=== PATIENT | female | born 1975 | race Caucasian/White ===

== ENCOUNTER 2019-03-09 09:30 | Day surgery (SDC) | payer MEDICARE, OTHER ==
[2019-03-05 16:15] VITALS: BMI 34.5
[~2019-03-09 09:30] MED LIST: LACTATED RINGERS 1,000 ML IV SCH; LIDOCAINE 1% 20 ML VIAL (10MG/ML) FOR IV START INTRADERMA PRN
[2019-03-09 11:37] VITALS: RESP 18; TEMP 98.1
[2019-03-09] MEDS ORDERED: PROPOFOL 10 MG/ML 20 ML VIAL IV ONE (12:24)
--- NOTE | 2019-03-09 12:58 | P.PCN ---
Date of Procedure: 03/09/19 Procedure(s) Performed: Procedure: Esophagogastroduodenoscopy and biopsy. Preoperative diagnosis: Dysphagia and history of stricture. Diagnosis: 1. Small sliding hiatal hernia with no obvious esophagitis or complicated reflux disease. 2. No Hastings's esophagus strictures. 3. Mild gastritis and minimal duodenitis. 4. Biopsies obtained from the antrum and esophagus. Preparation and sedation: Was provided by anesthesia. Brief clinical history: The patient is a 43-year-old female with history of Down syndrome and mental disadvantage who is scheduled for this evaluation because of dysphagia. The patient had history of altered bowel function with predominant diarrhea that has improved upon elimination of dairy. Her dysphagia is of recent onset, although, there is history of esophageal stricture that was dilated using the 12-15 mm balloon in 2010 and 2011. Procedure: With the patient on her left lateral decubitus position and after informed consent and adequate sedation, I passed the Olympus-GIF H190 video upper endoscope through the cricopharyngeus down the esophagus. GE junction was around 34 cm from the incisors and there was a very small sliding hiatal hernia but no obvious esophagitis or complicated reflux disease. Specifically, there were no Hastings's esophagus or strictures. The endoscope was then passed into the stomach which was insufflated with air and inspected in detail including the retroflex view in the cardia. There was some mottling and erythema in the antrum but no ulcers or erosions. Pyloric channel did not show any ulcers. Duodenal bulb, post bulbar area and descending duodenum showed mild erythema. I obtained biopsies from the antrum and esophagus but there was no indications for dilation. The patient tolerated the procedure well. Plan: I discussed with the caregiver. If she continues to have difficulty swallowing and especially if there is nutritional compromise, we may have to do additional evaluation for possible motility problems.
[2019-03-09 13:12] VITALS: BP 95/59; PULSE 51
== END 2019-03-09 13:30 | disposition home or self-care (01) ==
LOC: ORWHC2ENDO 09:30 → EEVIPCON 11:10 → ORWHC2ENDO 13:30
DX: K29.50 Unspecified chronic gastritis without bleeding (principal); K44.9 Diaphragmatic hernia without obstruction or gangrene; R13.10 Dysphagia, unspecified; Q90.9 Down syndrome, unspecified; R19.4 Change in bowel habit; E07.9 Disorder of thyroid, unspecified; F95.2 Tourette's disorder; K21.9 Gastro-esophageal reflux disease without esophagitis; Z79.890 Hormone replacement therapy; Z79.899 Other long term (current) drug therapy
CPT/HCPCS: 43239; 88305; 88342; 84703; J2704

== ENCOUNTER 2021-03-15 15:18 | Emergency (ER) | payer MEDICARE, OTHER ==
[2021-03-15 15:36] VITALS: RESP 20
--- NOTE | 2021-03-15 16:00 | ED ---
General Adult HPI - General Chief complaint: Recheck/Abnormal Lab/Rx Stated complaint: Aspirations Time Seen by Provider: 03/15/21 15:21 Source: EMS Mode of arrival: EMS Limitations: altered mental status - History of Present Illness Initial comments: Maria L is a 45-year-old female with history of Down syndrome and profound cognitive delay. She is brought to the ER today by ambulance after having a choking episode while eating rice at her snf. Nonverbal and offers no complaints. - Related Data Home Medications Medication Instructions Recorded Confirmed Cimetidine [Tagamet] 400 mg PO HS 12/26/16 03/09/19 Levothyroxine Sodium [Levoxyl] 88 mcg PO DAILY 12/26/16 03/09/19 Loratadine [Claritin] 10 mg PO DAILY 12/26/16 03/09/19 Oxybutynin Chloride 10 mg PO HS 12/26/16 03/09/19 Oxybutynin Chloride [Ditropan] 5 mg PO QAM 12/26/16 03/09/19 risperiDONE [RisperDAL] 0.75 mg PO HS 12/26/16 03/09/19 Melatonin 3 mg PO HS 03/05/19 03/09/19 Allergies Allergy/AdvReac Type Severity Reaction Status Date / Time No Known Allergies Allergy Verified 03/15/21 15:25 Review of Systems ROS Statement: Those systems with pertinent positive or pertinent negative responses have been documented in the HPI. ROS Other: All systems not noted in ROS Statement are negative. Past Medical History Past Medical History: Thyroid Disorder Additional Past Medical History / Comment(s): Down syndrome, tourettes disorder, severe mental retardation, dysphagia for last month, incontinence History of Any Multi-Drug Resistant Organisms: None Reported Past Surgical History: No Surgical Hx Reported Additional Past Surgical History / Comment(s): Egd 2010 & 2012 per care provider Past Anesthesia/Blood Transfusion Reactions: No Reported Reaction Additional Past Anesthesia/Blood Transfusion Reaction / Comment(s): no family hx. available Past Psychological History: No Psychological Hx Reported Smoking Status: Never smoker Past Alcohol Use History: None Reported Past Drug Use History: None Reported - Past Family History Mother Family Medical History: Unable to Obtain General Exam - General Exam Comments Initial Comments: Physical Exam GENERAL: Syndromic appearance No distress HENT: Normocephalic, Atraumatic. EYES: Disconjugate gaze PULMONARY: Unlabored respirations. No audible rales rhonchi or wheezing was noted. CARDIOVASCULAR: There is a regular rate and rhythm without any murmurs gallops or rubs. ABDOMEN: Soft and nontender with normal bowel sounds. SKIN: Skin is clear with no lesions or rashes and otherwise unremarkable. : Deferred NEUROLOGIC: Patient is alert and oriented x3. Moving all extremities spontaneously MUSCULOSKELETAL: Normal extremities with adequate strength and full range of motion. No lower extremity swelling or edema. No calf tenderness. PSYCHIATRIC: Normal psychiatric evaluation. Limitations: altered mental status Course Vital Signs 03/15/21 03/15/21 15:25 16:55 Temperature 99.1 F 98.4 F Pulse Rate 67 72 Respiratory 20 20 Rate Blood Pressure 102/87 100/80 O2 Sat by Pulse 98 97 Oximetry Medical Decision Making - Medical Decision Making The patient was seen and evaluated history obtained from EMS Patient hemodynamically stable no hypoxia no coughing no choking x-ray was negative patient to be discharged back to her snf, group therapy counselor bedside comfortable taking patient home via private vehicle Disposition Clinical Impression: Cough Disposition: HOME SELF-CARE Condition: Stable Instructions (If sedation given, give patient instructions): Aspiration Pneumonia (DC) Additional Instructions: Return for any worsening cough or fever Is patient prescribed a controlled substance at d/c from ED?: No Referrals: None,Stated [Primary Care Provider] - 1-2 days
[2021-03-15 16:56] VITALS: BP 100/80; PULSE 72; TEMP 98.4
--- NOTE | 2021-03-15 17:13 | XR ---
EXAMINATION TYPE: XR chest 2V DATE OF EXAM: 03/15/2021 COMPARISON: NONE HISTORY: Choking episode. TECHNIQUE: Frontal and lateral views of the chest are obtained. FINDINGS: There is moderate interstitial edema with accompanying diffuse hazy opacity. No significan t pleural effusion, or pneumothorax seen. The cardiac silhouette size is markedly enlarged. The os seous structures are intact. IMPRESSION: Congestive changes.
== END 2021-03-15 16:56 | disposition home or self-care (01) ==
LOC: EC 15:18
DX: R05 Cough (principal); Z79.890 Hormone replacement therapy; Z79.899 Other long term (current) drug therapy
CPT/HCPCS: 71046; 99284

== ENCOUNTER → 2021-07-21 | Outpatient (CLI) | payer MEDICARE, OTHER ==
[2021-07-21 19:27] LABS: Basophils # (A) 0.05 X 10*3/uL (0.00-0.10); Basophils % (A) 0.9 %; Eosinophils # (A) 0.02 X 10*3/uL (0.04-0.35); Eosinophils % (A) 0.4 %; HCT 41.1 % (37.2-46.3); HGB 12.8 g/dL (12.0-15.0); Lymphocytes # (A) 1.63 X 10*3/uL (0.90-5.00); Lymphocytes % (A) 30.4 %; MCH 30.6 pg (27.0-32.0); MCHC 31.1 g/dL (32.0-37.0); MCV 98.3 fL (80.0-97.0); Mean Platelet Volume 11.6 fL (9.5-12.2); Monocytes # (A) 0.36 X 10*3/uL (0.20-1.00); Monocytes % (A) 6.7 %; Neutrophils # (A) 3.29 X 10*3/uL (1.80-7.70); Neutrophils % (A) 61.2 %; Platelet Count 276 X 10*3/uL (140-440); RBC 4.18 X 10*6/uL (4.10-5.20); RDW 15.5 % (11.5-14.5); WBC 5.37 X 10*3/uL (4.50-10.00)
[2021-07-21 21:56] LABS: Erythrocyte Sedimentation Rate 41 mm/Hr (0-20)
[2021-07-22 05:05] LABS: Gliadin AB IgA, Deaminated NEGATIVE (NEGATIVE); Gliadin AB IgA, Unit <0.2 U/mL; Gliadin AB IgG, Deaminated NEGATIVE (NEGATIVE)
== END | disposition home or self-care (01) ==
LOC: LABWHC1 11:00
PROVIDERS: ATTEND Internal Medicine Gastroenterology
DX: K52.9 Noninfective gastroenteritis and colitis, unspecified (principal)
CPT/HCPCS: 36415; 80053; 83516; 85025; 85652; 86140

== ENCOUNTER → 2022-08-31 | Outpatient (CLI) | payer MEDICARE, OTHER ==
--- NOTE | 2022-08-31 10:10 | USB ---
Reason for Exam: Initial imaging for young patient. Risk Values: Alesha 5 year model risk: 0.5%. NCI Lifetime model risk: 6.5%. Technique: Method: Whole Breast Handheld. Findings: The whole breast of both breasts, the axilla of both breasts and the retroareolar of both breasts were scanned. A complete US of all four quadrants of the breast and retro-areolar region were reviewed. No solid or cystic masses are identified on images saved. Overall Assessment: Negative, BI-RAD 1 Management: Screening Mammogram of both breasts. Patient due for bilateral breast mammogram now which she does not want to perform. Results were given to the patient verbally at the time of exam. Electronically signed and approved by: Octavio Geller M.D.
== END | disposition home or self-care (01) ==
LOC: RADUSWWP 09:32
PROVIDERS: ATTEND Internal Medicine
DX: R92.8 Other abnormal and inconclusive findings on diagnostic imaging of breast (principal)

== ENCOUNTER 2023-11-22 11:12 | Day surgery (SDC) | payer MEDICARE, OTHER ==
[2023-11-20 13:56] VITALS: BMI 40.6
[~2023-11-22 11:12] MED LIST changes: -LACTATED RINGERS 1,000 ML IV SCH; +LIDOCAINE 1% (10MG/ML) FOR IV START INTRADERMA PRN; -LIDOCAINE 1% 20 ML VIAL (10MG/ML) FOR IV START INTRADERMA PRN
[2023-11-22 11:47] VITALS: TEMP 97.3
[2023-11-22] MEDS: MIDAZOLAM 2 MG/2 ML VIAL IVP ONE ×2 (11:51→12:02)
[2023-11-22] MEDS: LACTATED RINGERS 1,000 ML IV SCH (11:52)
[2023-11-22] MEDS ORDERED: LIDOCAINE 1% INJ 10MG/ML (20 ML MDV) ONE (12:25)
[2023-11-22] MEDS ORDERED: PROPOFOL 10 MG/ML 20 ML VIAL IV ONE (12:25)
--- NOTE | 2023-11-22 12:39 | P.PCN ---
Date of Procedure: 11/22/23 Procedure(s) Performed: BRIEF HISTORY: Patient is a 47-year-old, pleasant, white female with history of trisomy 21 syndrome scheduled for an upper endoscopy with possible dilation as a part of evaluation of intermittent dysphagia to solids for the last 3-4 months duration. PROCEDURE PERFORMED: Esophagogastroduodenoscopy with dilation. PREOPERATIVE DIAGNOSIS: Intermittent dysphagia solids for the last 4-5 months duration. IV sedation per anesthesia. PROCEDURE: After informed consent was obtained, the patient was brought into the endoscopy unit. IV sedation was administered by Anesthesia under continuous monitoring. Initially the Olympus GIF-140 video endoscope was inserted into the mouth. Esophagus intubated without any difficulty. It was gradually advanced into the stomach and duodenum and carefully examined. The bulb and the second part of the duodenum appeared normal. The scope at this time was withdrawn to the stomach, adequately insufflated with air, and upon careful examination, mucosa of the antrum, body, cardia and the fundus appeared normal. The scope was then withdrawn into the esophagus. The GE junction was located at 36 cm from the incisors. There was a widely patent distal esophageal Schatzki's ring identified and this was dilated using 18-20 mm TTS balloon in sequential fashion for 60 seconds. The rest of the esophagus appeared normal. There were no erosions or ulcerations seen . There was small amount of firm retained solid food noted in the proximal esophagus and the patient tolerated the procedure well. IMPRESSION: 1. Widely patent distal esophageal Schatzki's ring status post balloon dilation using 18-20 mm TTS balloon as described above. 2. Slightly dilated esophagus with small amount of retained solid food in the proximal esophagus. RECOMMENDATIONS: The findings of this examination were discussed with the patient as well as her family. She will remain on a clear liquid diet for 2 hours. Advance diet as tolerated. Follow up in office if she has persistent dysphagia and will consider esophageal manometry to rule out esophageal dysmotility
[2023-11-22 13:28] VITALS: BP 112/65; PULSE 61; RESP 17
== END 2023-11-22 13:37 | disposition home or self-care (01) ==
LOC: ORWHC2ENDO 11:12
PROVIDERS: ATTEND Internal Medicine Gastroenterology
DX: K22.2 Esophageal obstruction (principal); F41.9 Anxiety disorder, unspecified; Q90.9 Down syndrome, unspecified; Q87.89 Other specified congenital malformation syndromes, not elsewhere classified; Z98.890 Other specified postprocedural states; Z79.899 Other long term (current) drug therapy
CPT/HCPCS: 43249; J2250; J2001; J2704; C1726

== ENCOUNTER 2024-03-04 18:21 | Emergency (ER) | payer MEDICARE, OTHER ==
[2024-03-04 18:47] VITALS: RESP 20
[2024-03-04] MEDS: ACETAMINOPHEN TAB 500 MG TAB PO STA (20:10)
--- NOTE | 2024-03-04 20:21 | ED ---
Fall HPI - General Chief Complaint: Fall Stated Complaint: fall/L shoulder,arm/gash Time Seen by Provider: 03/04/24 19:19 Source: patient, Caregiver Mode of arrival: ambulatory - History of Present Illness Initial Comments: 48-year-old female with a past medical history significant for Down's, autism, presenting with her caregiver at [facility]. History limited from the patient herself secondary to medical history. Per caregiver, patient was outside on the swing while maintenance was doing maintenance at the house. At this time, the trapdoor was opened to the house and that she walked down into to it. Caregiver reports that the fall was 4 feet. This was not witnessed by anyone available for questioning at this time. When asked about areas of pain, patient points to her left arm, left hip, and is holding the right side of her head. No other complaints at this time. - Related Data Home Medications Medication Instructions Recorded Confirmed Loratadine [Claritin] 10 mg PO HS 12/26/16 11/22/23 Oxybutynin Chloride 10 mg PO 12/26/16 11/22/23 oxyBUTYnin chloride [Ditropan] 5 mg PO QAM 12/26/16 11/22/23 risperiDONE [RisperDAL] 0.5 mg PO 1700 12/26/16 11/22/23 Acetaminophen [Tylenol] 325 - 650 mg PO Q4-6H PRN 11/20/23 11/22/23 Cholecalciferol [Vitamin D3 (25 25 mcg PO DAILY 11/20/23 11/22/23 Mcg = 1000 Iu)] Cimetidine [Tagamet Hb] 200 mg PO 11/20/23 11/22/23 Levothyroxine Sodium 112 mcg PO QAM 11/20/23 11/22/23 Loperamide [Imodium] 2 mg PO QID PRN 11/20/23 11/22/23 Melatonin 2 mg PO 11/20/23 11/22/23 allopurinoL 100 mg PO DAILY 11/20/23 11/22/23 risperiDONE 0.25 mg PO 1700 11/20/23 11/22/23 risperiDONE 0.25 mg PO QAM 11/20/23 11/22/23 risperiDONE 0.5 mg PO QAM 11/20/23 11/22/23 Allergies Allergy/AdvReac Type Severity Reaction Status Date / Time No Known Allergies Allergy Verified 03/04/24 18:47 Review of Systems ROS Statement: Those systems with pertinent positive or pertinent negative responses have been documented in the HPI. ROS Other: All systems not noted in ROS Statement are negative. Past Medical History Past Medical History: Thyroid Disorder Additional Past Medical History / Comment(s): Down syndrome, tourettes disorder, severe mental retardation, dysphagia for last month, sometimes has urinary incontinence when out, occasional bowel incontince - dairy causes loose stools. History of Any Multi-Drug Resistant Organisms: None Reported Past Surgical History: No Surgical Hx Reported Additional Past Surgical History / Comment(s): EGD X2 with dilation. Past Anesthesia/Blood Transfusion Reactions: No Reported Reaction Additional Past Anesthesia/Blood Transfusion Reaction / Comment(s): No family hx available. Past Psychological History: Anxiety Smoking Status: Never smoker Past Alcohol Use History: None Reported Past Drug Use History: None Reported - Past Family History Mother Family Medical History: Unable to Obtain General Exam Limitations: language barrier General appearance: alert, in no apparent distress Head exam: Present: atraumatic, normocephalic, other (No pozo signs or raccoon's eyes. No outward evidence of head trauma however patient is holding the right side of her head.) Neck exam: Present: normal inspection Respiratory exam: Present: normal lung sounds bilaterally Cardiovascular Exam: Present: regular rate GI/Abdominal exam: Present: soft Extremities exam: Present: other (Patient does have 2 lacerations on the anterior aspect of her left arm. She is able to stand and ambulate without significant difficulty. Active range of motion bilateral upper lower extremities.) Back exam: Present: other (No midline spinal tenderness to palpation.) Neurological exam: Present: alert Skin exam: Present: warm, dry Course Vital Signs 03/04/24 18:43 Temperature 97.9 F Pulse Rate 85 Respiratory 20 Rate Blood Pressure 109/67 O2 Sat by Pulse 95 Oximetry Procedures - Laceration Laceration #1 Indication: laceration Size (cm): 3 Description: linear Depth: simple, single layer Anesthetic Used: lidocaine 1%, without epi Amount (mls): 1 Pre-repair: wound explored, irrigated extensively Type of Sutures: nylon Size of Sutures: 5-0 Number of Sutures: 7 Technique: simple, interrupted Patient Tolerated Procedure: well, no complications Laceration #2 Indication: laceration Description: linear Depth: simple, single layer Anesthetic Used: lidocaine 1%, without epi Anesthesia Technique: local infiltration Amount (mls): 2 Pre-repair: wound explored, irrigated extensively, deep structures intact Type of Sutures: nylon Size of Sutures: 5-0 Number of Sutures: 7 Technique: simple, interrupted Patient Tolerated Procedure: well, no complications Medical Decision Making - Medical Decision Making Was pt. sent in by a medical professional or institution (, PA, [employer] ACCESS DEVELOPER, urgent care, hospital, or skilled nursing...) When possible be specific @ -No Did you speak to anyone other than the patient for history (EMS, parent, family, police, friend...)? What history was obtained from this source @ -Majority of history obtained by the patient's caregiver. For further details please see HPI. Did you review nursing and triage notes (agree or disagree)? Why? @ -I reviewed and agree with nursing and triage notes Were old charts reviewed (outside hosp., previous admission, EMS record, old EKG, old radiological studies, urgent care reports/EKG's, skilled nursing records)? Report findings @ -No old charts were reviewed Differential Diagnosis (chest pain, altered mental status, abdominal pain women, abdominal pain men, vaginal bleeding, weakness, fever, dyspnea, syncope, h eadache, dizziness, GI bleed, back pain, seizure, CVA, palpatations, mental health, musculoskeletal)? @ -Differential Musculoskeletal Muscular strain, contusion, ligament sprain, fracture, arthritis, septic arthritis, bursitis, cellulitis, muscle spasm, nerve compression, DVT, arterial occlusion, herpes zoster, electrolyte abnormality, tumor.... This is not meant to be in all inclusive list EKG interpreted by me (3pts min.). @ -None X-rays interpreted by me (1pt min.). @ -X-rays of the lumbar spine, forearm, chest, pelvis interpreted me which revealed no evidence of acute finding. CT interpreted by me (1pt min.). @ -CT brain and cervical spine interpreted me which revealed no evidence of acute finding. U/S interpreted by me (1pt. min.). @ -None done What testing was considered but not performed or refused? (CT, X-rays, U/S, labs)? Why? @ -None What meds were considered but not given or refused? Why? @ -None Did you discuss the management of the patient with other professionals (professionals i.e. , PA, [employer] ACCESS DEVELOPER, lab, RT, psych nurse, director social service, closed circuit screen watcher, teacher, business services officer, manager case)? Give summary @ -No Was smoking cessation discussed for >3mins.? @ -No Was critical care preformed (if so, how long)? @ -No Were there social determinants of health that impacted care today? How? (Homelessness, low income, unemployed, alcoholism, drug addiction, transportation, low edu. Level, literacy, decrease access to med. care, nursing home, rehab)? @ -No Was there de-escalation of care discussed even if they declined (Discuss DNR or withdrawal of care, Hospice)? DNR status @ -No What co-morbidities impacted this encounter? (DM, HTN, Smoking, COPD, CAD, Cancer, CVA, ARF, Chemo, Hep., AIDS, mental health diagnosis, sleep apnea, morbid obesity)? @ -Down syndrome Was patient admitted / discharged? Hospital course, mention meds given and route, prescriptions, significant lab abnormalities, going to OR and other pertinent info. @ -Discharge 38-year-old female presenting to the ED status post fall. Patient fell down a trapdoor which was open while maintenance was changing from this filters. Patient unable to verbalize complaints however did point to her left hip when asked about pain and also to her left arm. She was also holding her head. However on examination full active range of motion bilateral upper lower extremities. Radial pulses DP/PT pulses intact. Ambulates without difficulty. Imaging studies performed and reviewed. X-rays of the lumbar spine, forearm, chest, pelvis revealed no evidence of acute finding. CT of the brain and cervical spine revealed no evidence of acute finding. Lacerations were repaired. Tetanus is up-to-date. Discharged home in stable condition. Discussed return precautions with patient's caregiver who verbalized agreement. Undiagnosed new problem with uncertain prognosis? @ -No Drug Therapy requiring intensive monitoring for toxicity (Heparin, Nitro, Insulin, Cardizem)? @ -No Were any procedures done? @ -Yes, laceration repair Diagnosis/symptom? @ -Status post fall Acute, or Chronic, or Acute on Chronic? @ -Acute Uncomplicated (without systemic symptoms) or Complicated (systemic symptoms)? @ -Uncomplicated Side effects of treatment? @ -No Exacerbation, Progression, or Severe Exacerbation? @ -No Poses a threat to life or bodily function? How? (Chest pain, USA, ID, pneumonia, PE, COPD, DKA, ARF, appy, cholecystitis, CVA, Diverticulitis, Homicidal, Suicidal, threat to staff... and all critical care pts) @ -No Disposition Clinical Impression: Fall Disposition: HOME SELF-CARE Condition: Good Instructions (If sedation given, give patient instructions): Care For Your Stitches (ED) Additional Instructions: Please return to the Emergency Department if symptoms worsen or any other concerns. Please return in 7 to 10 days for suture removal. Is patient prescribed a controlled substance at d/c from ED?: No Referrals: Rigoberto Parks MD [Primary Care Provider] - 1-2 days Time of Disposition: 00:45
[2024-03-04] MEDS: diphenhydrAMINE 50 MG/ML 1 ML VIAL IM STA (20:56)
[2024-03-04] MEDS: LORazepam 2 MG/ML INJ IM STA (20:57)
[2024-03-04] MEDS: HALOPERIDOL LACTATE 5 MG/ML 1 ML VIAL IM STA (21:48)
--- NOTE | 2024-03-04 21:58 | XR ---
EXAMINATION TYPE: XR chest 1V portable DATE OF EXAM: 03/04/2024 9:40 PM CLINICAL INDICATION:Female, 48 years old with history of s/p fall; [facility] COMPARISON: None TECHNIQUE: XR chest 1V portable Frontal view of the chest. FINDINGS: Lungs/Pleura: There is no evidence of pleural effusion, focal consolidation, or pneumothorax. Pulmonary vascularity: Unremarkable. Heart/mediastinum: Cardiomediastinal silhouette is obscured due to overlying and adjacent opacities. Musculoskeletal: No acute osseous pathology. IMPRESSION: 1. No acute cardiopulmonary disease/process. 2. Cardiomegaly.
--- NOTE | 2024-03-04 21:59 | XR ---
EXAMINATION TYPE: XR pelvis AP view DATE OF EXAM: 03/04/2024 9:40 PM CLINICAL INDICATION:Female, 48 years old with history of s/p fall left hip pain; [facility] COMPARISON: None TECHNIQUE: XR pelvis AP view, examined in a single projection. FINDINGS: There is no evidence of fracture or dislocation. There is no soft tissue abnormality. No a bnormal calcifications are present. The spine appears intact. The hips appear intact. No significant degeneration. IMPRESSION: No acute osseous pathology.
--- NOTE | 2024-03-04 22:00 | XR ---
EXAMINATION TYPE: XR lumbar spine 2 or 3V DATE OF EXAM: 03/04/2024 9:40 PM CLINICAL INDICATION:Female, 48 years old with history of s/p fall back pain; [facility] COMPARISON: None TECHNIQUE: XR lumbar spine 2 or 3V - Frontal, lateral and coned in L5-S1 lateral views of the spine. FINDINGS: No evidence of any acute osseous pathology. No evidence of loss of vertebral body height i s seen. There is grade 2 anterolisthesis alignment of the lumbar vertebral bodies of L4 on L5. Scatte red disc space narrowing. Multilevel marginal osteophyte formation throughout the visualized spine. T here is facet joint arthropathy throughout the spine. Scattered at least mild neural foraminal stenos is. IMPRESSION: 1. No acute fracture. 2. Mild multilevel disc degeneration. 3. Grade 2 anterolisthesis of L4 and L5.
--- NOTE | 2024-03-04 22:01 | XR ---
EXAMINATION TYPE: XR forearm LT DATE OF EXAM: 03/04/2024 9:40 PM CLINICAL INDICATION:Female, 48 years old with history of s/p fall head injury; H COMPARISON: None TECHNIQUE: XR forearm LT; forearm was examined in AP and lateral projections. FINDINGS: No acute osseous pathology, soft tissue swelling or joint dislocations are seen. IMPRESSION: No evidence of acute fracture.
--- NOTE | 2024-03-05 00:26 | CT ---
EXAM: CT Head Without Intravenous Contrast CLINICAL HISTORY: ITS.REASON CT Reason: s/p fall head injury TECHNIQUE: Axial computed tomography images of the head/brain without intravenous contrast. CTDI is 45.2 mGy and DLP is 2775.9 mGy-cm. This CT exam was performed using one or more of the following dose reduction techniques: automated exposure control, adjustment of the mA and/or kV according to patient size, and/or use of iterative reconstruction technique. COMPARISON: No relevant prior studies available. FINDINGS: No acute intracranial hemorrhage. No midline shift or mass effect. The territorial lanza-white matter differentiation is maintained throughout. The ventricles and sulci are commensurate with age. The visualized orbits appear grossly unremarkable. The calvarium is intact. The visualized paranasal sinuses and mastoid air cells are grossly clear. IMPRESSION: No acute intracranial hemorrhage, midline shift, or mass effect. EXAM: CT Cervical Spine Without Intravenous Contrast CLINICAL HISTORY: ITS.REASON CT Reason: s/p fall head injury TECHNIQUE: Axial computed tomography images of the cervical spine without intravenous contrast. CTDI is 45.2 mGy and DLP is 2775.9 mGy-cm. This CT exam was performed using one or more of the following dose reduction techniques: automated exposure control, adjustment of the mA and/or kV according to patient size, and/or use of iterative reconstruction technique. COMPARISON: No relevant prior studies available. FINDINGS: The vertebral body heights are maintained. The craniocervical junction is intact. The atlanto-dens interval is maintained. The dens is intact. There is no spondylolisthesis. The intervertebral disc spaces are preserved. There is no spinal canal or neural foraminal stenosis. The unenhanced neck soft tissues are grossly unremarkable. The visualized lung apices are grossly clear. IMPRESSION: No acute fracture or subluxation of the cervical spine.
[2024-03-05 01:47] VITALS: BP 112/71; PULSE 80; TEMP 97.8
== END 2024-03-05 01:47 | disposition home or self-care (01) ==
LOC: EC 18:21
DX: S81.812A Laceration without foreign body, left lower leg, initial encounter (principal); S81.811A Laceration without foreign body, right lower leg, initial encounter; W17.89XA Other fall from one level to another, initial encounter; Y92.009 Unspecified place in unspecified non-institutional (private) residence as the place of occurrence of the external cause
CPT/HCPCS: 72100; 72170; 73090; 71045; 72125; 70450; 99284; 12002; 96372 ×3; J2060; J1200; J1630

== ENCOUNTER → 2024-07-16 | Outpatient (CLI) | payer MEDICARE, OTHER ==
--- NOTE | 2024-07-16 10:47 | US ---
EXAMINATION TYPE: US abdomen complete DATE OF EXAM: 07/16/2024 COMPARISON: NONE CLINICAL INDICATION: Female, 48 years old with history of R1.84 ABD PAIN; generalized abdominal pain. Caregiver states when she has spicy foods she holds her right side. TECHNIQUE: Grayscale and color Doppler imaging of the abdomen was performed. FINDINGS: EXAM MEASUREMENTS: Liver Length: 11.0 cm Gallbladder Wall: 0.27 cm CBD: 0.75 cm Spleen: not seen Right Kidney: 7.5 x 3.8 x 3.6 cm Left Kidney: not seen EDUCATION SUPERVISOR NOTES: Pt is nonverbal and unable to follow directions well. Exam is limited. Pancreas: parts seen appear wnl Liver: wnl Gallbladder: contracted with multiple gallstones inside Evidence for sonographic Dunne's sign: No CBD: Borderline dilated. Spleen: not seen Right Kidney: wnl Left Kidney: not seen Upper IVC: not seen Abd Aorta: parts seen appear wnl The liver is homogenous. No focal lesion. The visualized portions of the abdominal aorta are within normal limits. The upper IVC is not visualized due to overlying bowel gas. Contracted gallbladder wit h multiple gallstones. Common bile duct is borderline dilated. The visualized portions of the pancre as are homogenous. The spleen is unremarkable. The left kidney is not visualized due to overlying khalida wel gas. Right kidney is within normal limits without hydronephrosis or solid mass. No shadowing calc emerald. IMPRESSION: Limited exam due to patient condition. 1. Cholelithiasis without ultrasound evidence for acute cholecystitis. 2. Borderline dilated common bile duct. Correlation with biliary obstructive labs is recommended. Con dedicated driver further evaluation with MRCP or ERCP as clinically indicated. [facility], , 07/16/2024 10:45 AM
== END | disposition home or self-care (01) ==
LOC: RADUSWWP 08:32
PROVIDERS: ATTEND Internal Medicine
DX: K80.20 Calculus of gallbladder without cholecystitis without obstruction (principal)
CPT/HCPCS: 76700